=== PATIENT | male | born 1940 ===

== ENCOUNTER → 2017-09-02 | Outpatient (CLI) | payer OTHER ==
[~2017-09-02] MED LIST: MULT-506 PO; SERT25TA PO
--- NOTE | 2017-09-02 10:22 | DIAGNOSTIC IMAGING REPORT ---
RIGHT SHOULDER 3 VIEWS CLINICAL HISTORY: Right shoulder pain. FINDINGS: 3 views of the right shoulder are compared to study dated 01/21/2015. The skeletal structures are osteopenic. No acute fracture is identified and there is no dislocation. A Hill-Sachs deformity is noted in the humeral head. Productive degenerative change is seen at the acromio clavicular joint. Bony spurring seen along the inferior aspect of the humeral head. The overlying soft tissues are within normal limits. The imaged right upper lobe lung parenchyma appears clear. IMPRESSION: 1. No acute fracture or dislocation is identified. 2. Osteopenia, chronic Hill-Sachs deformity, and arthritic change as above. Electronically signed by: Hermes Quintero M.D. 09/02/2017 10:20 AM Dictated Date/Time: 09/02/2017 10:19 AM
== END | disposition home or self-care (01) ==
LOC: C.RDSM 19:08
PROVIDERS: ATTEND Family Medicine
DX: M25.511 Pain in right shoulder (principal); M85.811 Other specified disorders of bone density and structure, right shoulder